=== PATIENT | male | born 1940 | race Caucasian/White ===

== ENCOUNTER 2024-02-17 08:33 | Emergency (ER) | payer OTHER ==
[~2024-02-17] VITALS: Ht 167.6 cm; Wt 74.8 kg
[2024-02-17 08:34] VITALS: BP 165/53; PULSE 95; RESP 18; TEMP 97.8; O2SAT 99
[2024-02-17 09:13] LABS: BASOPHILS % (AUTO) 0.6 % (0.0-2.0); EOSINOPHILS # (AUTO) 0.2 K/uL (0-0.4); EOSINOPHILS % (AUTO) 2.8 % (0.0-4.0); HEMATOCRIT 34.8 % (36-52); HEMOGLOBIN 11.2 g/dL (12.0-18.0); LYMPHOCYTES # (AUTO) 1.3 K/uL (2.0-11.5); LYMPHOCYTES % (AUTO) 20.3 % (20.5-51.1); MEAN CORPUSCULAR HEMOGLOBIN 25 pg (27-31); MEAN CORPUSCULAR HGB CONC 32 g/dL (33-37); MEAN CORPUSCULAR VOLUME 78.8 fL (80-94); MONOCYTES # (AUTO) 0.3 K/uL (0.8-1.0); MONOCYTES % (AUTO) 5.3 % (1.7-9.3); NEUTROPHILS # (AUTO) 4.6 K/uL (1.8-7.7); PLATELET COUNT (AUTO) 247 K/uL (140-450); RED BLOOD CELL COUNT(AUTO) 4.42 MIL/uL (4.20-6.10); RED CELL DISTRIBUTION WIDTH 16.3 % (11.6-13.7); WHITE BLOOD COUNT (AUTO) 6.4 K/uL (4.8-10.8)
[2024-02-17 09:19] LABS: CALCIUM 8.8 mg/dL (8.5-10.1); CARBON DIOXIDE 25.3 mmol/L (21-32); CHLORIDE 107 mmol/L (98-107); CREATININE 1.1 mg/dL (0.6-1.3); GLUCOSE 143 mg/dL (74-106); POTASSIUM 3.3 mmol/L (3.5-5.1); SODIUM SERUM 141 mmol/L (136-145); UREA NITROGEN, BLOOD 16 mg/dL (7-18)
[2024-02-17] MEDS ORDERED: DEXTROSE 50% 50 ML SYR IVP ONE (10:11)
[2024-02-17] MEDS: DEXTROSE 50% 50 ML SYR IVP ONE ×2 (10:40→13:02)
[2024-02-17 11:11] VITALS: O2SAT 99
[2024-02-17 13:28] VITALS: O2SAT 99
[2024-02-17 15:09] VITALS: BP 135/70; PULSE 77; RESP 16; TEMP 98; O2SAT 99
== END 2024-02-17 15:09 | disposition home or self-care (01) ==
LOC: MED 08:33
DX: T38.3X1A Poisoning by insulin and oral hypoglycemic [antidiabetic] drugs, accidental (unintentional), initial encounter (principal); E16.2 Hypoglycemia, unspecified; Y92.89 Other specified places as the place of occurrence of the external cause
CPT/HCPCS: 36415; 80048; 82948; 85025; 96374; 96376; 99284; 99291